=== PATIENT | male | born 1965 | race African-American/Black ===

== ENCOUNTER 2016-11-02 06:19 | Emergency (ER) | payer SELFPAY ==
[~2016-11-02] VITALS: Ht 175.3 cm; Wt 85.0 kg
[~2016-11-02 06:19] MED LIST: IBUP800T23 PO; ROBA500T PO; ZOFR4TAB3 SL
[2016-11-02 06:21] VITALS: BP 180/109; PULSE 71; RESP 16; TEMP 97.9; O2SAT 99
[2016-11-02] MEDS ORDERED: CYCL1TAB29 PO (06:41)
[2016-11-02] MEDS ORDERED: DICL75TA PO (06:41)
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
== END 2016-11-02 06:44 | disposition home or self-care (01) ==
LOC: NEPD 06:19
DX: M54.5 Low back pain (principal)
CPT/HCPCS: 99284

== ENCOUNTER 2016-11-09 05:58 | Emergency (ER) | payer SELFPAY ==
[~2016-11-09 05:58] MED LIST changes: +CYCL1TAB29 PO; +DICL75TA PO; -IBUP800T23 PO; -ROBA500T PO; -ZOFR4TAB3 SL
[2016-11-09 06:01] VITALS: BP 150/94; PULSE 69; RESP 16; TEMP 98.3; O2SAT 98
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
== END 2016-11-09 07:11 | disposition home or self-care (01) ==
LOC: NEPD 05:58
DX: R03.0 Elevated blood-pressure reading, without diagnosis of hypertension (principal); M54.5 Low back pain; Z79.899 Other long term (current) drug therapy
CPT/HCPCS: 99281

== ENCOUNTER 2017-01-20 17:39 | Emergency (ER) | payer SELFPAY ==
[~2017-01-20] VITALS: Ht 175.3 cm; Wt 85.0 kg
[2017-01-20 17:41] VITALS: BP 144/98; PULSE 60; RESP 16; TEMP 98.7; O2SAT 99
[2017-01-21] MEDS ORDERED: HYDR-3533 PO (04:03)
== END 2017-01-20 21:10 | disposition left against medical advice (07) ==
LOC: NED 17:39
DX: Z53.21 Procedure and treatment not carried out due to patient leaving prior to being seen by health care provider (principal)
CPT/HCPCS: 99281

== ENCOUNTER 2017-01-21 03:22 | Emergency (ER) | payer OTHER ==
[~2017-01-21] VITALS: Ht 175.3 cm; Wt 88.0 kg
[2017-01-21 03:23] VITALS: BP 193/101; PULSE 64; RESP 16; TEMP 98.8; O2SAT 96
[2017-01-21] MEDS ORDERED: HYDR-3533 PO (04:03)
[2017-01-21] MEDS ORDERED: ACETAMINOPHEN/HYDROcodone 325 MG/5 MG TAB PO ONE (04:15)
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
== END 2017-01-21 04:29 | disposition home or self-care (01) ==
LOC: NEPD 03:22
DX: S62.314A Displaced fracture of base of fourth metacarpal bone, right hand, initial encounter for closed fracture (principal); V43.62XA Car passenger injured in collision with other type car in traffic accident, initial encounter; Y92.414 Local residential or business street as the place of occurrence of the external cause
CPT/HCPCS: 29125; 73130

== ENCOUNTER 2017-01-28 05:31 | Emergency (ER) | payer OTHER ==
[~2017-01-28] VITALS: Ht 175.3 cm; Wt 86.0 kg
[~2017-01-28 05:31] MED LIST changes: -CYCL1TAB29 PO; -DICL75TA PO; +HYDR-3533 PO
[2017-01-28 05:34] VITALS: BP 180/104; PULSE 69; RESP 16; TEMP 98.7; O2SAT 98
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
== END 2017-01-28 06:12 | disposition home or self-care (01) ==
LOC: NEPD 05:31
DX: S62.304D Unspecified fracture of fourth metacarpal bone, right hand, subsequent encounter for fracture with routine healing (principal); X58.XXXD Exposure to other specified factors, subsequent encounter
CPT/HCPCS: 29125

== ENCOUNTER 2017-02-08 10:44 | Emergency (ER) | payer SELFPAY ==
[~2017-02-08] VITALS: Ht 175.3 cm; Wt 88.0 kg
[2017-02-08 10:45] VITALS: BP 194/109; PULSE 65; RESP 16; TEMP 98.7; O2SAT 98
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
== END 2017-02-08 11:19 | disposition left against medical advice (07) ==
LOC: NEPK 10:44
DX: S62.304D Unspecified fracture of fourth metacarpal bone, right hand, subsequent encounter for fracture with routine healing (principal); X58.XXXD Exposure to other specified factors, subsequent encounter
CPT/HCPCS: 99281

== ENCOUNTER 2017-08-05 05:24 | Emergency (ER) | payer OTHER ==
[~2017-08-05] VITALS: Ht 175.3 cm; Wt 85.0 kg
[2017-08-05 05:27] VITALS: BP 161/89; PULSE 78; RESP 18; TEMP 98.4; O2SAT 99
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
[2017-08-05] MEDS ORDERED: MELO15TA20 PO (07:14)
[2017-08-05] MEDS ORDERED: CYCL10TA PO (07:14)
[2017-08-05] MEDS ORDERED: HYDR-3516 PO (07:14)
--- NOTE | 2017-08-05 07:18 | RADRPT ---
EXAM DATE/TIME: 08/05/2017 06:52 [facility] COMPARISON: No previous studies available for comparison. INDICATIONS : Pain with no known injury. MEDICAL HISTORY : None. SURGICAL HISTORY : None. ENCOUNTER: Initial ACUITY: 1 day PAIN SCORE: 10/10 LOCATION: Left Hip FINDINGS: Examination of the left hip was performed with AP Pelvis. The primary and secondary trabecular patte rn of the femoral neck is intact. The hip joint is of normal width without significant sclerosis or bony hypertrophy. The acetabulum is grossly intact. CONCLUSION: Negative for fracture or dislocation. Follow up in 7-10 days is suggested if symptoms persist. Sheldon Evans MD FACR on August 05, 2017 at 7:14 Board Certified Radiologist. This report was verified electronically.
--- NOTE | 2017-08-05 07:19 | RADRPT ---
EXAM DATE/TIME: 08/05/2017 06:52 [facility] COMPARISON: No previous studies available for comparison. INDICATIONS : Pain with no known injury. MEDICAL HISTORY : None. SURGICAL HISTORY : None. ENCOUNTER: Initial ACUITY: 3 weeks PAIN SCORE: 10/10 LOCATION: Lower back. FINDINGS: There is loss of disc space height at T11-T12 and T12-L1. Lumbar disc spaces are well preserved. Sh e body height is preserved. Mild degenerative changes are present facets at L5-S1. CONCLUSION: Degenerative changes as described above, negative for acute process. Sheldon Evans MD FACR on August 05, 2017 at 7:15 Board Certified Radiologist. This report was verified electronically.
--- NOTE | 2017-08-05 07:55 | PD ---
Physical Exam Date Seen by Provider: Aug 05, 2017 Time Seen by Provider: 07:53 Narrative 52-year-old male previously evaluated by Morteza Lewis PA-C, was overturned to me at change of shift with x-rays pending of the lumbar spine and hip. Data Data Last Documented VS Vital Signs Date Time Temp Pulse Resp B/P (MAP) Pulse Ox O2 Delivery O2 Flow Rate FiO2 08/05/17 05:27 98.4 78 18 161/89 (113) 99 Orders Orders Hip, Uni(Ap&Lat) W Ap Pelvis (08/05/17 06:28) Spine, Lumbar - Ltd (Ap & Lat) (08/05/17 06:28) Ed Discharge Order (08/05/17 07:48) [facility] Medical Record Reviewed: Yes Supervised Visit with KOFI: Yes Narrative Course 52-year-old male previously evaluated by Morteza Lewis PA-C, was overturned to me at change of shift with x-rays pending of the lumbar spine and hip. Patient is treated with meloxicam 15 mg daily #10. Patient is given Flexeril 10 mg up to 3 times daily as needed muscle spasm. #15 Patient is given Lortab 5/325 one tab every 6 hours as needed pain #12 per Patient is to follow-up with workers comp. Patient is off work for next 5 days. Diagnosis Primary Impression: Lumbago of lumbosacaral region with sciatica Patient Instructions: General Instructions, Lower Back Exercises (ED), Lumbar Radiculopathy (ED), Piriformis Syndrome (DC) Additional Instruction: 52-year-old male previously evaluated by Morteza Lewis PA-C, was overturned to me at change of shift with x-rays pending of the lumbar spine and hip. Patient is treated with meloxicam 15 mg daily #10. Patient is given Flexeril 10 mg up to 3 times daily as needed muscle spasm. #15 Patient is given Lortab 5/325 one tab every 6 hours as needed pain #12 per Patient is to follow-up with workers comp. Patient is off work for next 5 days. Scripts Cyclobenzaprine (Flexeril) 10 Mg Tab 10 MG PO TID for Muscle Spasm, #15 TAB 0 Refills Prov: Yasir Schneider MD 08/05/17 Hydrocodone-Acetaminophen (Hydrocodone-Acetaminophen) 5-325 mg Tab 1 TAB PO Q6H Y for PAIN, #12 TAB 0 Refills Prov: Yasir Schneider MD 08/05/17 Meloxicam (Meloxicam) 15 Mg Tab 15 MG PO DAILY for Arthritis Pain, #10 TAB 0 Refills Prov: Yasir Schneider MD 08/05/17 Disposition: 01 DISCHARGE HOME Condition: Stable Titus Dover Aug 05, 2017 07:55
--- NOTE | 2017-08-05 08:32 | PD ---
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 Previously seen by Michi Lewis with x-rays ordered. X-ray showed no acute process per radiologist. 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 Previously seen by Michi Lewis with x-rays ordered. X-ray showed no acute process per radiologist. Patient will be treated with meloxicam 15 mg daily for 10 days. Patient is given hydrocodone/acetaminophen 5/325 mg every 6 hours as needed #12. Patient is given Flexeril 10 mg up to 3 times daily as needed muscle spasm #15 Workers comp forms completed with no work until 08/10/2017. Patient can follow-up with [employer] comp if symptoms persist or worsen. Patient Instructions: Back Pain (ED), General Instructions, Lower Back Exercises (ED), Lumbar Radiculopathy (ED), Piriformis Syndrome (ED) Additional Instruction: Patient will be treated with meloxicam 15 mg daily for 10 days. Patient is given hydrocodone/acetaminophen 5/325 mg every 6 hours as needed #12. Patient is given Flexeril 10 mg up to 3 times daily as needed muscle spasm #15 Workers comp forms completed with no work until 08/10/2017. Patient can follow-up with [employer] if symptoms persist or worsen. Med/Other Pt SpecificInfo: Prescription(s) given Scripts Cyclobenzaprine (Flexeril) 10 Mg Tab 10 MG PO TID for Muscle Spasm, #15 TAB 0 Refills Prov: Yasir Schneider MD 08/05/17 Hydrocodone-Acetaminophen (Hydrocodone-Acetaminophen) 5-325 mg Tab 1 TAB PO Q6H Y for PAIN, #12 TAB 0 Refills Prov: Yasir Schneider MD 08/05/17 Meloxicam (Meloxicam) 15 Mg Tab 15 MG PO DAILY for Arthritis Pain, #10 TAB 0 Refills Prov: Yasir Schneider MD 08/05/17 Disposition: 01 DISCHARGE HOME Condition: Stable Titus Dover Aug 05, 2017 08:32
== END 2017-08-05 08:04 | disposition home or self-care (01) ==
LOC: NEPD 05:24
DX: M54.42 Lumbago with sciatica, left side (principal)
CPT/HCPCS: 72100; 73502; 99284